=== PATIENT | female | born 1995 | race Caucasian/White ===

== ENCOUNTER 2022-11-08 11:21 | Emergency (ER) | payer OTHER ==
[~2022-11-08] VITALS: Ht 182.9 cm; Wt 86.2 kg
[2022-11-08] MEDS ORDERED: KETOROLAC TROMETHAMINE 15 MG INJ ONE (11:56)
[2022-11-08] MEDS ORDERED: HYDROCODONE/APAP 5-325MG TABLET ONE (11:56)
[2022-11-08] MEDS ORDERED: CLINDAMYCIN 600 MG PIGGYBACK**ER OMNI IV ONE (11:57)
[2022-11-08] MEDS ORDERED: CLINDAMYCIN PHOSPHATE IV 600 MG in IV DEXTROSE 5% 100 ML IV ONE (12:00)
[2022-11-08] MEDS ORDERED: KETOROLAC TROMETHAMINE 15 MG INJ IVP ONE (12:00)
[2022-11-08] MEDS ORDERED: HYDROCODONE/APAP 5-325MG TABLET PO ONE (12:00)
[2022-11-08 12:03] LABS: HEMATOCRIT 49.4 % (31.2-41.9); MEAN CORPUSCULAR VOLUME 93.3 fL (75.5-95.3); PLATELET COUNT (AUTO) 253 K/uL (179-408)
--- NOTE | 2022-11-08 12:05 | NUR ---
Pt to xray/CT via w/c.
[2022-11-08 12:13] LABS: CREATININE 0.8 mg/dL (0.6-1.3)
--- NOTE | 2022-11-08 12:25 | NUR ---
Pt back from xray/CT, Saline lock inserted and Cleocin IVPB started as ordered. NAD noted at this time.
[2022-11-08] MEDS ORDERED: LIDOCAINE HCL 1% 20 ML VIAL ONE (12:38)
[2022-11-08] MEDS ORDERED: CLIN300C12 PO (13:49)
--- NOTE | 2022-11-08 14:05 | NUR ---
IV removed. Catheter intact and site benign. Pressure and 4x4 gauze applied to site. No bleeding noted.
--- NOTE | 2022-11-08 14:10 | NUR ---
Patient discharged to home in stable condition. Written and verbal after care instructions given. Patient verbalizes understanding of instructions. Stressed follow up or return to ER for worsening s/s.
== END 2022-11-08 14:11 | disposition home or self-care (01) ==
LOC: ER 11:21
DX: S02.69XA Fracture of mandible of other specified site, initial encounter for closed fracture (principal); S02.5XXA Fracture of tooth (traumatic), initial encounter for closed fracture; Y04.0XXA Assault by unarmed brawl or fight, initial encounter; Y92.89 Other specified places as the place of occurrence of the external cause; F10.90 Alcohol use, unspecified, uncomplicated; F14.90 Cocaine use, unspecified, uncomplicated
CPT/HCPCS: 99284; 96365; 70486; 71045; 96375; 80048; 85025; 36415; J3490 ×3; J1885; A4663